=== PATIENT | male | born 1970 | race Asian ===

== ENCOUNTER 2023-04-25 20:15 | Emergency (ER) | payer OTHER ==
[~2023-04-25] VITALS: Ht 188 cm; Wt 82.1 kg
[~2023-04-25 20:15] MED LIST: MEMA5TAB PO
[2023-04-25 20:40] VITALS: BP 143/98; TEMP 98.7
[2023-04-25 20:41] LABS: PLATELET COUNT 182 K/uL (142-355)
[2023-04-25 20:46] LABS: POTASSIUM 3.9 mmol/L (3.6-5.2)
[2023-04-25] MEDS ORDERED: LIPITOR80 MG PO (21:39)
[2023-04-25] MEDS ORDERED: ZYPREXA ZYDI10 MG PO (21:40)
[2023-04-25] MEDS ORDERED: VALP250S3 PO ×2 (21:41→21:46)
[2023-04-25] MEDS ORDERED: DONE5TAB PO (21:43)
[2023-04-25] MEDS ORDERED: HALO5INJ3 IM (21:45)
[2023-04-25] MEDS ORDERED: LOPRESSOR100 MG PO (21:48)
[2023-04-25] MEDS ORDERED: VITAMIN B-121000 MCG PO (21:52)
[2023-04-25] MEDS ORDERED: THIA100T8 PO (21:53)
[2023-04-25] MEDS ORDERED: ASPIRIN/ENTERIC81 MG PO (21:54)
[2023-04-25] MEDS ORDERED: MIRALAX17 GM/SCOO PO (21:56)
[2023-04-25] MEDS ORDERED: [UNRECOGNIZED DRUG - OTHER] PO (21:56)
[2023-05-02] MEDS ORDERED: ENTERIC COATED325 MG PO (10:19)
[2023-05-02] MEDS ORDERED: Atorvastatin Calcium PO (10:19)
[2023-05-02] MEDS ORDERED: METO50TA27 PO (10:20)
[2023-05-02] MEDS ORDERED: MEMA5TAB PO (10:20)
[2023-05-02] MEDS ORDERED: CHOL100034 PO (10:20)
[2023-05-02] MEDS ORDERED: VITAMIN B-121000 MCG PO (10:20)
[2023-05-02] MEDS ORDERED: OLANZAPINE5 MG PO (10:21)
[2023-05-02] MEDS ORDERED: MULTTAB52 PO (10:21)
[2023-05-02] MEDS ORDERED: THIA100T8 PO (10:21)
[2023-05-02] MEDS ORDERED: MIRALAX 17GM PAK PO (10:21)
[2023-05-02] MEDS ORDERED: VALPROIC A250 MG/5 M PO ×2 (10:22→10:23)
== END 2023-04-25 20:40 | disposition other institution (70) ==
LOC: ED 20:15
PROVIDERS: Family Medicine
DX: R45.6 Violent behavior (principal); R45.1 Restlessness and agitation; H54.7 Unspecified visual loss; Z02.79 Encounter for issue of other medical certificate
CPT/HCPCS: 80053; 85027; 87635; 99283; U0003